=== PATIENT | male | born 1960 | race Caucasian/White ===

== ENCOUNTER 2021-12-14 06:49 | Day surgery (SDC) | payer BC ==
[~2021-12-14 06:49] MED LIST: Lactated Ringers 1,000 ML IV SCH
[2021-12-14] MEDS ORDERED: fentaNYL 100 MCG/2 ML SDV ONE (08:10)
[2021-12-14] MEDS ORDERED: Propofol 200 MG/20 ML SDV ONE ×2 (08:10→08:21)
== END 2021-12-14 09:50 | disposition home or self-care (01) ==
LOC: VM.SDS 06:49
PROVIDERS: ATTEND Family Medicine
DX: Z12.11 Encounter for screening for malignant neoplasm of colon (principal); D12.5 Benign neoplasm of sigmoid colon; D12.2 Benign neoplasm of ascending colon; K57.30 Diverticulosis of large intestine without perforation or abscess without bleeding; I10 Essential (primary) hypertension; E78.00 Pure hypercholesterolemia, unspecified; Z98.890 Other specified postprocedural states; Z79.899 Other long term (current) drug therapy; Z79.82 Long term (current) use of aspirin
CPT/HCPCS: 00812; J2704; J3010; J7120